=== PATIENT | female | born 1990 | race Hispanic/Latino ===

== ENCOUNTER → 2019-02-21 | Outpatient (CLI) | payer BC ==
[~2019-02-21] VITALS: Ht 170.2 cm; Wt 99.8 kg
[~2019-02-21] MED LIST: REGADENOSON 0.4 MG/5 ML PF SYG IVP SCH
== END | disposition home or self-care (01) ==
LOC: SHCH 08:22
PROVIDERS: ATTEND Internal Medicine Cardiovascular Disease
DX: R00.2 Palpitations (principal)
CPT/HCPCS: 78452; 93017; 96374; A9500 ×2; J2785

== ENCOUNTER → 2019-03-24 | Outpatient (CLI) | payer OTHER | END | disposition home or self-care (01) | LOC: OIH 10:32 | PROVIDERS: ATTEND Internal Medicine Cardiovascular Disease | DX: Z13.6 Encounter for screening for cardiovascular disorders (principal) | CPT/HCPCS: 75571 ==

== ENCOUNTER 2019-05-24 10:32 | Emergency (ER) | payer BC, OTHER ==
[2019-05-24 11:08] LABS: BASOPHILS % (AUTO) 0.3 % (0.0-5.0); EOSINOPHILS % (AUTO) 0.6 % (0.0-8.0); HEMATOCRIT 36.6 % (36-48); LYMPHOCYTES % (AUTO) 18.2 % (21.0-51.0); MEAN CORPUSCULAR HEMOGLOBIN 28.2 pg (27.0-33.0); MEAN CORPUSCULAR HGB CONC 33.2 g/dL (32.0-36.0); MEAN CORPUSCULAR VOLUME 84.9 fL (79-99); MONOCYTES % (AUTO) 7.7 % (3.0-13.0); NEUTROPHILS % (AUTO) 73.2 % (40.0-77.0); NUCLEATED RED BLOOD CELLS 0.1 % (0.0-0.19); PLATELET COUNT (AUTO) 256 K/uL (130-400); RED BLOOD CELL COUNT(AUTO) 4.31 MIL/uL (4.00-5.50); RED CELL DISTRIBUTION WIDTH 13.9 % (11.0-15.5)
[2019-05-24 11:16] LABS: CREATININE 0.7 mg/dL (0.5-1.5)
[2019-05-24 11:20] LABS: APPEARANCE,URINE Turbid (CLEAR); BILIRUBIN,URINE Negative (NEGATIVE); COLOR,URINE Yellow (YELLOW); GLUCOSE, URINE (UA) Negative (NEGATIVE); KETONES,URINE Negative (NEGATIVE); LEUKOCYTE ESTERASE ,URINE Large (NEGATIVE); NITRATE,URINE Positive (NEGATIVE); OCCULT BLOOD,URINE Large (NEGATIVE); PH,URINE 5.5 (5.0-8.0); PROTEIN,URINE 300 mg/dL (NEGATIVE)
[2019-05-24 11:20] LABS: ALBUMIN 4.2 g/dL (3.5-5.0); BILIRUBIN,DIRECT 0.1 mg/dL (0.0-0.3); BILIRUBIN,TOTAL 0.4 mg/dL (0.2-1.0)
[2019-05-24 11:22] LABS: HCG,QUAL RESULT NEGATIVE (NEGATIVE)
[2019-05-24 11:28] LABS: AMPHET/METH SCREEN,URINE NEGATIVE (NEGATIVE); BARBITURATE SCREEN, URINE NEGATIVE (NEGATIVE); BENZODIAZEPINES SCREEN,URINE NEGATIVE (NEGATIVE); CANNABINOID SCREEN,URINE NEGATIVE (NEGATIVE); COCAINE SCREEN,URINE NEGATIVE (NEGATIVE); OPIATE SCREEN,URINE POSITIVE (NEGATIVE); PHENCYCLIDINE SCREEN,URINE NEGATIVE (NEGATIVE)
[2019-05-24 11:36] LABS: BACTERIA,URINE Moderate /HPF (None Seen); RBC,URINE 51-100 /HPF (0-1); WBC,URINE TNTC /HPF (0-1)
[2019-05-24] MEDS ORDERED: LEVOFLOXACIN 500 MG TABLET ONE (11:38)
[2019-05-24] MEDS ORDERED: KETOROLAC TROMETHAMINE 30MG/ML ONE (11:38)
== END 2019-05-24 12:01 | disposition home or self-care (01) ==
LOC: EDH 10:32
DX: N39.0 Urinary tract infection, site not specified (principal); Z98.890 Other specified postprocedural states; Z88.6 Allergy status to analgesic agent; Z91.041 Radiographic dye allergy status; Z88.8 Allergy status to other drugs, medicaments and biological substances
CPT/HCPCS: 36415; 80048; 80076; 80305; 81001; 81025; 83690; 85025; 96374; 99285; J1885

== ENCOUNTER 2019-11-14 05:39 | Day surgery (SDC) | payer BC ==
[2019-11-13 14:28] LABS: BASOPHILS % (AUTO) 0.4 % (0.0-5.0); EOSINOPHILS % (AUTO) 1.4 % (0.0-8.0); HEMATOCRIT 37.9 % (36-48); LYMPHOCYTES % (AUTO) 34.7 % (21.0-51.0); MEAN CORPUSCULAR HEMOGLOBIN 27.6 pg (27.0-33.0); MEAN CORPUSCULAR HGB CONC 32.5 g/dL (32.0-36.0); MEAN CORPUSCULAR VOLUME 85.2 fL (79-99); MONOCYTES % (AUTO) 11.5 % (3.0-13.0); NEUTROPHILS % (AUTO) 51.8 % (40.0-77.0); PLATELET COUNT (AUTO) 237 K/uL (130-400); RED BLOOD CELL COUNT(AUTO) 4.45 MIL/uL (4.00-5.50); RED CELL DISTRIBUTION WIDTH 13.4 % (11.0-15.5); WHITE BLOOD COUNT (AUTO) 5.7 K/uL (4.8-10.8)
[2019-11-13 15:19] VITALS: BP 125/70
[2019-11-14] VITALS (19 sets, daily range): BP systolic 90–119; BP diastolic 53–73
[~2019-11-14] VITALS: Ht 172.7 cm; Wt 99.7 kg
[~2019-11-14 05:39] MED LIST changes: +DEPO IM; -REGADENOSON 0.4 MG/5 ML PF SYG IVP SCH
[2019-11-14] MEDS ORDERED: CLINDAMYCIN 900 MG/D5% WATER 50 ML IV ONE (06:24)
[2019-11-14] MEDS ORDERED: LACTATED RINGERS 1000ML 1,000 ML IV ONE (06:24)
[2019-11-14] MEDS ORDERED: SCOPOLAMINE HYDROBROMIDE 1 EACH ADH..PATCH TD ONE (06:56)
[2019-11-14] MEDS ORDERED: LIDOCAINE PF 2% 5ML ABBOJECT ONE (07:05)
[2019-11-14] MEDS ORDERED: MIDAZOLAM HCL 1 MG/ML 2ML VIAL ONE (07:05)
[2019-11-14] MEDS ORDERED: DEXAMETHASONE SOD PHOSPHATE 10MG/ML 1ML VIAL ONE (07:05)
[2019-11-14] MEDS ORDERED: PROPOFOL 10 MG/ML 20ML VIAL IV ONE (07:05)
[2019-11-14] MEDS ORDERED: FENTANYL CITRATE PF 50 MCG/1 ML 2ML VIAL ONE (07:06)
[2019-11-14] MEDS ORDERED: MEPERIDINE-PF 25 MG/ML SYG ONE (07:42)
[2019-11-14] MEDS ORDERED: LACTATED RINGERS 1000ML 1,000 ML IV SCH (08:00)
[2019-11-14] MEDS ORDERED: CALDOLOR 800MG+NS 250ML 250 ML IV PRN (08:00)
[2019-11-14] MEDS ORDERED: CLINDAMYCIN 900 MG/D5% WATER 50 ML IV PRN (08:00)
--- NOTE | 2019-11-14 09:00 | NUR ---
PROCEDURE PT HERE FROM PACU STAFF FRANK RN. PT AAOX3. JAIRON PAD DRY AND INTACT. NO BLEEDING, OOZING NOTED TO SITE. FATHER AT BEDSIDE.
--- NOTE | 2019-11-14 09:45 | NUR ---
DISCHARGE ORAL AND WRITTEN DISCHARGE INSTRUCTIONS GIVEN TO PT AND PTS . PT STATES HAS A PRESCRIPTION THAT WAS CALLED IN PRIOR TO PROCEDURE. INSTRUCTED ON IMPORTANCE OF URINATING WITHIN 6 HOURS OR REPORT TO ER OR CALL MD. BOTH VERBALIZED UNDERSTANDING.
== END 2019-11-14 09:50 | disposition home or self-care (01) ==
LOC: DAH 05:39
PROVIDERS: ATTEND Obstetrics & Gynecology
DX: N92.1 Excessive and frequent menstruation with irregular cycle (principal); G43.109 Migraine with aura, not intractable, without status migrainosus; I10 Essential (primary) hypertension; E66.01 Morbid (severe) obesity due to excess calories; Z88.8 Allergy status to other drugs, medicaments and biological substances; Z88.3 Allergy status to other anti-infective agents; Z68.33 Body mass index [BMI] 33.0-33.9, adult; Z98.890 Other specified postprocedural states; Z79.899 Other long term (current) drug therapy; Z83.3 Family history of diabetes mellitus; Z82.49 Family history of ischemic heart disease and other diseases of the circulatory system
CPT/HCPCS: 36415; 58558; 84703; 85025; 86850; 86900; 86901; 88305; A4215; A4221; A4222; A4223; A4351; A4355; A4663; A6260; J1100; J1741; J2001; J2175; J2250; J2704; J3010; J3490; J7030; J7120

== ENCOUNTER → 2023-03-21 | Outpatient (CLI) | payer BC | END | disposition home or self-care (01) | LOC: RAH 08:19 | PROVIDERS: ATTEND Family Medicine Sports Medicine | DX: R10.12 Left upper quadrant pain (principal) | CPT/HCPCS: 76700 ==